=== PATIENT | female | born 1980 | race Two or more races ===

== ENCOUNTER 2016-11-25 13:56 | Emergency (ER) | payer MEDICAID, OTHER ==
[2016-11-25 14:10] VITALS: BP 133/85; PULSE 75; RESP 18; TEMP 98; O2SAT 96
--- NOTE | 2016-11-25 14:24 | EDPHY ---
H & P Time Seen by Provider: 11/25/16 14:04 HPI/ROS: CHIEF COMPLAINT: Concerns regarding incision HISTORY OF PRESENT ILLNESS: 36-year-old female who had a tubal ligation on November 14. Patient developed a infection on the wound and has been on Keflex for the last 5 days. Her Keflex is currently finished. She presents with concerns regarding the Steri-Strips which are coming off as well as a small amount discharge from the incision site. Minimal pain. No fevers or chills. No nausea or vomiting. Patient had a vaginal delivery on November 14. She reports her lochia is continuing but is diminishing each day. REVIEW OF SYSTEMS: Aside from elements discussed in the HPI, a comprehensive 10-point review of systems was reviewed and is negative. PAST MEDICAL HISTORY: AB1. Tubal ligation performed on November 14. SOCIAL HISTORY: Nonsmoker. Primary Nepali-speaking. VITAL SIGNS: see nurse's notes. Afebrile. GENERAL: Well-developed, well-nourished, in no acute distress. HEENT: Benign exam. Neck: supple, FROM. LUNGS: Clear to auscultation bilaterally, no wheezes, rhonchi or rales. CARDIAC: Regular rate and rhythm, no rubs, murmurs or gallops. ABDOMEN: 2 cm incision is present just umbilicus. It is well healing with the exception of a 3 mm area which is granulating in by secondary intention. There is a slight amount of crusty discharge present on the Steri-Strips which were removed. No erythema. Minimal tenderness along the incision site. Abdomen itself is soft, nontender. No suprapubic or uterine tenderness to palpation. BACK: No CVA tenderness. No vertebral tenderness. EXTREMITIES: No edema, FROM. NEURO: Alert and oriented, grossly nonfocal. SKIN: Warm and dry, no rash. Smoking Status: Never smoked Constitutional: Initial Vital Signs Temperature (C) 36.6 C 11/25/16 14:07 Heart Rate 75 11/25/16 14:07 Respiratory Rate 18 11/25/16 14:07 Blood Pressure 133/85 H 11/25/16 14:07 O2 Sat (%) 96 11/25/16 14:07 O2 Delivery Mode Room Air Allergies/Adverse Reactions: Penicillins Allergy (Intermediate, Verified 06/07/15 18:23) RASH AND PALPATATIONS Home Medications: Medication Instructions Recorded CEPHALEXIN 11/25/16 MDM/Departure - MDM ED Course/Re-evaluation: 36-year-old female presenting with concerns regarding small amount of discharge which is under the Steri-Strips on her tubal ligation incision. Patient had been on a 5 day course of Keflex for a wound infection. Wound does not look infected to me at this time. There is a very small amount of discharge on the Steri-Strips, but no surrounding erythema or tenderness. Differential Diagnosis: Differential diagnoses for the patient's symptom complex was considered including but not limited to wound infection, cellulitis, stitch abscess, healing in decision, endometritis. - Depart Disposition: Home, Routine, Self-Care Clinical Impression: Healing incision Condition: Good Instructions: Wound Healing and Your Diet (ED) Additional Instructions: Keep a thin layer of antibiotic cream over the healing incision. Watch for any worsening discharge, redness, or increased pain. Please follow up at [facility] on Sunday as previously scheduled. Return to the emergency department or seek care urgently if you developed increased pain, fever, vomiting, or other concerns. Referrals: MILLIE JAY,. [Primary Care Provider] - As per Instructions (Follow-up at [facility] seen as previously scheduled on Sunday.)
== END 2016-11-25 14:43 | disposition home or self-care (01) ==
LOC: CED 13:56
DX: T81.9XXA Unspecified complication of procedure, initial encounter (principal); Y82.8 Other medical devices associated with adverse incidents